=== PATIENT | female | born 1960 | race Caucasian/White ===

== ENCOUNTER 2020-03-30 06:46 | Day surgery (SDC) | payer BC ==
[2020-03-28 15:54] VITALS: BMI 30.1
[~2020-03-30 06:46] MED LIST: ALBUTEROL NEB (CONC) 2.5 MG/0.5 ML INHALATION ONE; LACTATED RINGERS 1,000 ML IV SCH; LIDOCAINE 2% (PF) 20 MG/ML 5 ML VIAL INHALATION ONE; LIDOCAINE VISCOUS 300 MG/15 ML CUP MUCOUS MEM ONE; SODIUM CHLORIDE 0.9% 1,000 ML IV SCH
[2020-03-30] MEDS ORDERED: LIDOCAINE 1% (10MG/ML) FOR IV START INTRADERMA ONE (07:23)
[2020-03-30] MEDS ORDERED: ATROPINE SULFATE 0.4 MG/ML 1 ML VIAL IM ONE (07:28)
[2020-03-30 07:31] VITALS: TEMP 97
[2020-03-30] MEDS ORDERED: PROPOFOL 10 MG/ML 20 ML VIAL IV ONE (07:34)
[2020-03-30] MEDS ORDERED: LIDOCAINE 1% INJ 10MG/ML (20 ML MDV) ONE (07:34)
[2020-03-30] MEDS ORDERED: LIDOCAINE 2% INJ 20 MG/ML INTRATRACH ONE (07:42)
[2020-03-30 08:09] VITALS: BP 117/64; PULSE 80; RESP 18
[2020-03-30 13:40] LABS: Appearance,BF Clear; Color,BF Colorless; Nucleated Cells, Body Fluid 22 /uL; RBC, Body Fluid 17 /uL
[2020-03-30 13:43] LABS: Mononuclear WBC,Body Fluid 18 %; Polynuclear WBC,Body Fluid 52 %; Total Cells Counted,Body Fluid 100
--- NOTE | 2020-03-30 16:12 | PCN ---
PROCEDURE NOTE PROCEDURE: Bronchoscopy, airway examination, therapeutic lavage, bronchoalveolar lavage, left lower lobe. PREOPERATIVE DIAGNOSIS: Cough, bronchitis. POSTOPERATIVE DIAGNOSIS: Cough, bronchitis. OPERATORS: 1. Rommel Valerio M.D. 2. Dr. Libia Cazares. 3. Hui Cueto. PROCEDURE DESCRIPTION: There was informed consent and universal timeout. The patient's procedure was done in room #1. Luly Beaulieu CRNA, provided general anesthesia. The patient was prepared in the usual fashion. Once she was under the effects of the anesthetic and being fully monitored, the bronchoscope was inserted through the right nostril. It passed through the right nasopharynx into the oropharynx, from the oropharynx into the hypopharynx. We studied the hypopharyngeal structures very carefully, including anterior commissure, true cords, false cords, arytenoids, piriform sinuses, right and left valleculae and epiglottis. Everything appeared normal. After topicalization of the glottic opening, the bronchoscope was pushed into the trachea. The trachea appeared completely normal. The tracheal edilson was sharp. We did a very thorough examination of both lungs. After topicalization, the right upper lobe and its 3 segments, the right middle lobe and its 2 segments, the right lower lobe and its 5 segments, the left upper lobe proper and its 2 segments, the lingula and its 2 segments and the left lower lobe and its 4 segments were all studied. Her anatomy was absolutely pristine. There were no abnormalities noted at all. There was no mucosal erythema or hyperemia. There was no mucosal friability. There were no secretions. We paid special attention to the area of the left lower lobe because that is the area that appeared to be abnormal on CT scan. There was no abnormality down there. There was no debris. There was no mass or tumor. There was no bleeding. The patient tolerated the procedure well. We did wedge the scope into the left lower lobe. We did a BAL. The BAL went well. We recovered about 30 mL of fluid and that will be sent for analysis. There was no immediate complication. The patient tolerated the procedure well. The bronchoscope was withdrawn. The patient will be recovered. MMODL / IJN: [id number] /
== END 2020-03-30 08:18 | disposition home or self-care (01) ==
LOC: ORWHC2ENDO 06:46
PROVIDERS: ATTEND Internal Medicine Critical Care Medicine
DX: J40 Bronchitis, not specified as acute or chronic (principal); R89.7 Abnormal histological findings in specimens from other organs, systems and tissues; J45.40 Moderate persistent asthma, uncomplicated; J32.9 Chronic sinusitis, unspecified; E03.9 Hypothyroidism, unspecified; F41.9 Anxiety disorder, unspecified; E78.5 Hyperlipidemia, unspecified; Z87.01 Personal history of pneumonia (recurrent); Z88.1 Allergy status to other antibiotic agents; Z79.899 Other long term (current) drug therapy; Z79.890 Hormone replacement therapy; Z79.51 Long term (current) use of inhaled steroids; Z87.891 Personal history of nicotine dependence; Z90.89 Acquired absence of other organs; Z98.890 Other specified postprocedural states; Z91.09 Other allergy status, other than to drugs and biological substances; Z83.49 Family history of other endocrine, nutritional and metabolic diseases; Z80.52 Family history of malignant neoplasm of bladder
CPT/HCPCS: 88108; 88305; 89050; 87252; 87070; 87205; 87116; 87102; 87206; 31624; J2001 ×2; J0461; J2704; 87496; 87498; 87502; 87529; 87634; 87798

== ENCOUNTER → 2020-04-11 | Outpatient (CLI) | payer BC ==
[2020-04-12 01:11] LABS: Codfish IgE <0.10 kU/L; Egg White IgE 0.27 kU/L; Peanut IgE <0.10 kU/L
[2020-04-12 01:12] LABS: Clam IgE <0.10 kU/L; Scallop IgE <0.10 kU/L; Shrimp IgE <0.10 kU/L; Soybean IgE <0.10 kU/L; Walnut IgE (Food) <0.10 kU/L
[2020-04-12 01:14] LABS: Cat Epith & Dander IgE <0.10 kU/L; Dermato. farinae IgE 0.26 kU/L; Dog Dander IgE 0.21 kU/L
[2020-04-12 01:15] LABS: Aspergillus fumagatus IgE 0.18 kU/L; Cladosporian herbarum IgE <0.10 kU/L; Cockroach IgE <0.10 kU/L
[2020-04-12 01:16] LABS: Alternaria alternata IgE <0.10 kU/L; Birch IgE <0.10 kU/L; Maple (Box Elder) IgE <0.10 kU/L; Oak IgE <0.10 kU/L
[2020-04-12 01:18] LABS: Elm IgE <0.10 kU/L; Ragweed,Common IgE <0.10 kU/L
[2020-04-12 01:19] LABS: Red Top (Bentgrass) IgE <0.10 kU/L
== END | disposition home or self-care (01) ==
LOC: LABWHC1 13:20
PROVIDERS: ATTEND Nurse Practitioner Adult Health
DX: J45.909 Unspecified asthma, uncomplicated (principal); J30.9 Allergic rhinitis, unspecified
CPT/HCPCS: 36415; 82785; 86003

== ENCOUNTER → 2020-07-07 | Outpatient (CLI) | payer BC | END | disposition home or self-care (01) | LOC: CPPFTMAIN 10:10 | PROVIDERS: ATTEND Internal Medicine Critical Care Medicine | DX: J45.901 Unspecified asthma with (acute) exacerbation (principal) | CPT/HCPCS: 94060; 94726; 94729 ==

== ENCOUNTER → 2023-06-18 | Day surgery (SDC) | payer BC, OTHER ==
[2023-06-13 15:10] VITALS: BMI 30.9
[~2023-06-18] MED LIST changes: -ALBUTEROL NEB (CONC) 2.5 MG/0.5 ML INHALATION ONE; +ATROPINE SULFATE 0.4 MG/ML 1 ML VIAL IM ONE; +DEXAMETHASONE SOD PHOSPHATE 4 MG/ML 1 ML VIAL IV ONE; +HYDROmorphone 0.5 MG/0.5 ML SYRINGE IVP PRN; +KETAMINE 10 MG/ML 20 ML VIAL ONE; +LIDOCAINE 1% (10MG/ML) FOR IV START INTRADERMA PRN; -LIDOCAINE 2% (PF) 20 MG/ML 5 ML VIAL INHALATION ONE; +LIDOCAINE 2% INJ 20 MG/ML (2 ML VIAL) ONE; +LIDOCAINE 2% INJ 20 MG/ML INTRATRACH ONE; -LIDOCAINE VISCOUS 300 MG/15 ML CUP MUCOUS MEM ONE; +MIDAZOLAM 2 MG/2 ML VIAL IV PRN; +MIDAZOLAM 2 MG/2 ML VIAL ONE; +ONDANSETRON 4 MG/2 ML VIAL IVP ONE; +PROPOFOL 10 MG/ML 20 ML VIAL IV ONE; -SODIUM CHLORIDE 0.9% 1,000 ML IV SCH
[2023-06-18 13:27] VITALS: TEMP 97.2
[2023-06-18 13:39] LABS: Glucose,Whole Blood 102 mg/dL (70-110)
[2023-06-18 14:04] VITALS: RESP 20
[2023-06-18 14:32] VITALS: BP 111/74; PULSE 84
--- NOTE | 2023-06-18 18:58 | PCN ---
PROCEDURE NOTE PROCEDURE PERFORMED: Bronchoscopy, airway examination, therapeutic lavage, BAL. PREOPERATIVE DIAGNOSES: 1. Chronic cough. 2. Chronic mucus production. 3. Tracheobronchomalacia. POSTOPERATIVE DIAGNOSES: 1. Chronic cough. 2. Chronic mucus production. 3. Tracheobronchomalacia. [employer] MACHINE OPERATOR: Dr. Cazares. There was informed consent and universal time-out. The patient's procedure took place in [facility], room #1. ANESTHESIA PROVIDED: General anesthesia. DESCRIPTION OF PROCEDURE: After the patient was adequately sedated and being fully monitored, the bronchoscope was pushed through the right nostril. It passed through the right nasopharynx into the oropharynx. The hypopharynx was identified. The hypopharyngeal structures, including anterior commissure, true cords, false cords, pyriform sinuses right and left, vallecula, epiglottis, and other structures, all appeared relatively normal. There were some secretions noted particularly in the hypopharynx, in the pyriform sinuses. There was no dominant mass or tumor within the hypopharyngeal structures. The hypopharyngeal structures appeared relatively normal. The glottic opening was topicalized with lidocaine. The bronchoscope was pushed through the glottic opening into the trachea. There was a mild degree of tracheomalacia. The trachea itself appeared relatively normal. There were some secretions noted more distally. Some of the secretions were saddling the tracheal edilson. The right and left mainstem were topicalized. We did a thorough evaluation of both lungs, including the right upper lobe and its 3 segments, right middle lobe and its 2 segments, right lower lobe and its 5 segments, left upper lobe proper and its 2 segments, lingula and its 2 segments, and left lower lobe and its 4 segments. There was significant diffuse bronchitis throughout. I would say the bronchitis was moderate to severe in intensity. There was significant hyperemia and erythema of the airways. There was no dominant mass or tumor. There was significant bronchomalacia noted. This was noted throughout. There was some mucosal friability. Secretions were thick. They were somewhat difficult to suction. Next, the bronchoscope was wedged into the area of the right middle lobe. Because of the patient's ongoing cough, I believe the sampling was more pool washings from the right middle lobe-right lower lobe area. About 30 mL of fluid was recovered. The bronchoscope was then used to suction additional secretions from the left and right lung. The patient tolerated the procedure relatively well, although she did cough throughout the procedure, not uncommon in this situation. The bronchoscope was withdrawn. The patient will be recovered. I did speak to the patient's daughter, Diamond. Additional recommendations and suggestions are forthcoming. The specimens were sent to the laboratory for analysis. MMODL / IJN: [id number] /
== END | disposition home or self-care (01) ==
LOC: ORWHC2ENDO 12:43
PROVIDERS: ATTEND Internal Medicine Critical Care Medicine
DX: J98.09 Other diseases of bronchus, not elsewhere classified (principal); E07.9 Disorder of thyroid, unspecified; J45.909 Unspecified asthma, uncomplicated; Z79.51 Long term (current) use of inhaled steroids; Z79.890 Hormone replacement therapy; Z88.8 Allergy status to other drugs, medicaments and biological substances; Z87.891 Personal history of nicotine dependence
CPT/HCPCS: 31624; J2001 ×2; J2250; J2704; 87070; 87102; 87116; 87205; 87206; 88108; 88305

== ENCOUNTER → 2023-10-27 | Outpatient (CLI) | payer OTHER | END | disposition home or self-care (01) | LOC: LABWHC1 10:30 | PROVIDERS: ATTEND Internal Medicine Critical Care Medicine | DX: J45.50 Severe persistent asthma, uncomplicated (principal) | CPT/HCPCS: 36415; 82785; 85008 ==